=== PATIENT | female | born 1950 | race Caucasian/White ===

== ENCOUNTER 2016-08-26 04:17 | Inpatient (IN) | payer OTHER ==
[~2016-08-26] VITALS: Ht 160 cm; Wt 78.0 kg
[~2016-08-26 04:17] MED LIST: ANASTROZOLE1 M1 PO; ASPIRIN EC81 M1 PO; HYDROCHLOROTHIA25 M1 PO; IRBESARTAN75 M1 PO; NEXIUM40 M1 PO
[2016-08-26] MEDS ORDERED: ZITHROMAX250 M2 PO (11:19)
[2016-08-26] MEDS ORDERED: CORICIDIN HBP1 EACH PO (11:20)
--- NOTE | 2016-08-26 15:14 | Admission Core Measures ---
Admission Meds I reviewed the following Meds: Current Medications Sig/Loraine Start time Last Medication Dose Stop Time Status Admin Ropivacaine 500 ML ONCE ONE 08/26 1315 AC (NAROPIN) 08/28 0654 ON-Q Ball 1 BAG Vancomycin HCl 1,000 MG ONCE 08/26 0000 NR Sodium Chloride 250 ML 08/26 7029 (Normal Saline 0.9%) Acute Coronary Syndrome Inclusion Criteria ACS Diagnosis No Inpatient Core Measures LDL Reminder: If No, please order W/I first 24hr of stay Congestive Heart Failure Inclusion Criteria CHF Diagnosis No Cerebrovascular accident Inclusion Criteria CVA/TIA Diagnosis No Inpatient Core Measures Bedside Swallow Eval Reminder: If BSE failed, place ST order Antithrombotic Reminder: Order Antithrombotic Medication by end of day 2 Antithrombotic Reminder: Document Reason Antithrombotic Not ordered by end of day 2 AFIB/Flutter Reminder: If Present, add to problem list AFIB/Flutter Reminder: Order Anticoag Medication for pts with AFIB/Flutter Atherosclerosis Reminder: If Present, add to problem list LDL Reminder: If No, please order W/I first 24hr of stay PT Order Reminder: If No, please order Venous thromboembolism Inpatient Core Measures VTE Risk Factors: Age > 40, Surgery VTE Prophylaxis Ordered Inpt Mech & Pharm No Mech VTE prophylaxis d/t No contraindications No VTE Pharm Prophylaxis d/t No contraindications Inclusion Criteria - Per Current guidelines, there needs to be overlap - treatment for the first 5 days of Warfarin therapy. - Parenteral Anticoagulation (IV or SC) needs to be - given along with Warfarin therapy. VTE Diagnosis No VTE Type NONE VTE Confirmed by (Test) NONE Problem List As ranked by this Provider includes Assessment & Plan 1. Unilateral primary osteoarthritis, right knee HOME MEDS Home Med List Acetaminophen/Chlorpheniramine (Coricidin Hbp Cold & Flu Tab) 325 MG-2 MG TABLET 1 TAB PO DAILY COUGH (Reported) Anastrozole 1 MG TABLET 1 TAB PO DAILY CANCER (Reported) Aspirin (Ecotrin*) 81 MG TABLET.DR 1 TAB PO DAILY HEART/BLOOD (Reported) Azithromycin (Zithromax) 250 MG TABLET 1 TAB PO DAILY COUGH (Reported) Esomeprazole (Nexium) 40 MG CAPSULE.DR 1 CAP PO DAILY GERD (Reported) Hydrochlorothiazide 25 MG TABLET 1 TAB PO DAILY BP (Reported) Irbesartan 75 MG TABLET 1 TAB PO DAILY BP (Reported)
[2016-08-26] MEDS ORDERED: DILAUDID2 M1 PO (16:09)
[2016-08-26] MEDS ORDERED: MIRALAX17 G1 PO (16:10)
[2016-08-26] MEDS ORDERED: COLACE100 M1 PO (16:10)
[2016-08-26] MEDS ORDERED: COUMADIN2.5 M1 PO (16:11)
[2016-08-26] MEDS ORDERED: ASPIRIN EC81 M1 PO (16:11)
--- NOTE | 2016-08-26 16:15 | Patient Discharge Instructions ---
Discharge Instructions General Discharge Information You were seen/treated for: Right knee pain You had these procedures: Right total knee replacement, by cruciate retaining Watch for these problems: Fevers greater than 101.5. Persistent vomiting for more than 8 hours. Shortness of breath or chest pain. Inability to bear weight whatsoever on your new knee replacement. Excessive draining from the wound that soaks your bandage. Increasing wound redness, or excessive swelling of the leg that was operated on that is not responding to ice, elevation, compression, or rest. Do not soak the wound: Yes No bath, but you may shower: Yes Other wound care: Your dressing is a waterproof silicon based dressing that will stay on for 7 days after your surgery. It is a sterile dressing that is infused with silver which helps to fight bacteria. Your home care nurse or physical therapist will remove it on postop day 7. You may shower as soon as you get home. Remove the Cristian wrap, but keep your dressing in place and let the water run over it. Again, it is a waterproof dressing so it should remain adherent to year skin despite getting wet in the shower. Dry off with a clean towel once done showering. Once the original dressing is removed, it can be replaced with a dry dressing as needed. Spots of blood on your original bandage are quite normal, but if it appears saturated your nurse may change it sooner than 7 days and you should call the office if this happens beyond 48 hours after the surgery. Your incision is closed with absorbable stitches which are hidden deep within the skin. The top layer of quinten will be removed on postoperative day 14, most likely by your nurse or physical therapist. Your incision should be kept covered with a clean, dry bandage for 10-14 days. Do NOT use any creams, lotions, or ointments on your incision until you are told you can do so by Dr. Gomez's office. You may use an Cristian wrap as needed for compression and swelling. Special Instructions: You'll be taking a blood thinning medication called Coumadin. Another name for this medication is warfarin. The dose of this medication is subject to change daily. It is based on blood work called INR. You will have your INR checked 2 times per week. Please await specific instructions from your surgeon's office regarding how much Coumadin you are to take daily prior to taking it. Diet Continue normal diet: Yes Recommended Diet: Regular Additional DIET Information: You may resume your normal diet whenever you choose. Drink plenty of fluids. Your pain medication may make you nauseous. This is a normal side effect of many pain medications. Activity Full Activity/No Limits: No Activity Self Limited: Yes Pounds, do NOT lift more than: 10 Additional ACTIVITY Info: On the day of surgery, or even the next day, you may feel lightheaded when you stand up. This is normal. Be sure to take a few minutes to steady yourself when you first sit up or stand. If you become lightheaded, simply lay down until the feeling passes. You may bear as much weight on your new knee replacement as your comfort allows. Use a rolling walker or crutches for the first 3 weeks postop for stability. You do not have any restrictions with your replaced knee. It is important to take short walks around her house, even if you are having discomfort. This will stretch out your muscles and actually make you feel better. Prolonged periods of inactivity will cause your thigh muscles to tighten up. Activity such as walking to the bathroom, going to the refrigerator, or even walking to the mailbox are actually good therapy! When you are not walking, be sure to keep your legs elevated to prevent excessive swelling. Acute Coronary Syndrome Inclusion Criteria At DC or during hospital stay patient has or had the following: ACS DIAGNOSIS No Discharge Core Measures Meds if any: Prescribed or Continued at Discharge Meds if any: NOT Prescribed or Continued at Discharge Congestive Heart Failure Inclusion Criteria At DC or during hospital stay patient has or had the following: CHF DIAGNOSIS No Discharge Core Measures Meds if any: Prescribed or Continued at Discharge Meds if any: NOT Prescribed or Continued at Discharge Cerebrovascular accident Inclusion Criteria At DC or during hospital stay patient has or had the following: CVA/TIA Diagnosis No Discharge Core Measures Meds if any: Prescribed or Continued at Discharge Meds if any: NOT Prescribed or Continued at Discharge Venous thromboembolism Inclusion Criteria VTE Diagnosis No VTE Type NONE VTE Confirmed by (Test) NONE Discharge Core Measures - Per Current guidelines, there needs to be overlap - treatment for the first 5 days of Warfarin therapy. - If discharged on Warfarin prior to 5 days of - overlap therapy, the patient will need to be - assessed for post discharge needs including - *Post discharge parental anticoagulation - *Warfarin and/or parental anticoagulation education - *Follow up date to check INR post discharge At least 5 days overlap therapy as Inpatient No Meds if any: Prescribed or Continued at Discharge Note: Overlap Therapy is Warfarin and Anticoagulant Meds if any: NOT Prescribed or Continued at Discharge
--- NOTE | 2016-08-26 16:18 | Surgical Discharge Summary ---
Visit Information Visit Dates Admission Date: 08/26/16 Discharge Date: 08/29/16 History of Present Illness Chief Complaint: Right knee pain Medical History Isolation History: Standard Surgical History Pertinent Surgical History: non-contributory Review of Systems: See H&P Hospital Course Course Attending Physician: NILAY SHIELDS MD Primary Care Physician: UNKNOWN Hospital Course: Patient was admitted to the hospital on 08/26/2016 for an elective right total knee replacement, by cruciate retaining. She tolerated the procedure well. She was transferred to a general surgical floor. Her diet was advanced and tolerated. Her vital signs were stable and within normal limits. She voided spontaneously. Her pain was well controlled. She was evaluated and treated by physical therapy. She was deemed appropriate for discharge. Allergies: Coded Allergies: Sulfa (Sulfonamide Antibiotics) (08/20/16) ciprofloxacin (From CIPRO) (08/20/16) lisinopril (08/25/16) PER PRE-OP ORDER SHEET FROM 08/25/16 - Disposition Summary Disposition Principal Diagnosis: Right knee unilateral primary osteoarthritis Additional Diagnosis: None Discharge Disposition: home health services Discharge Instructions General Discharge Information Code Status: Full Code Patient's Diet: Regular, advance as tolerated You may resume your normal diet whenever you choose. Drink plenty of fluids. Your pain medication may make you nauseous. This is a normal side effect of many pain medications. Patient's Activity: On the day of surgery, or even the next day, you may feel lightheaded when you stand up. This is normal. Be sure to take a few minutes to steady yourself when you first sit up or stand. If you become lightheaded, simply lay down until the feeling passes. You may bear as much weight on your new knee replacement as your comfort allows. Use a rolling walker or crutches for the first 3 weeks postop for stability. You do not have any restrictions with your replaced knee. It is important to take short walks around her house, even if you are having discomfort. This will stretch out your muscles and actually make you feel better. Prolonged periods of inactivity will cause your thigh muscles to tighten up. Activity such as walking to the bathroom, going to the refrigerator, or even walking to the mailbox are actually good therapy! When you are not walking, be sure to keep your legs elevated to prevent excessive swelling. Follow-Up Instructions/Appts: Follow-up will be in 2 weeks after discharge from the hospital or otherwise instructed. Call the office for fevers greater than 101.5, persistent vomiting for more than 8 hours, shortness of breath or chest pain, inability to bear weight whatsoever on your new knee replacement, excessive drainage from the wound that soaks your bandage, increased wound redness or excessive swelling of the leg that was operated on that is not responding to ice, elevation, compression, or rest. Medications at Discharge Discharge Medications: Stop taking the following medications: Aspirin (Ecotrin*) 81 MG TABLET. ORAL DAILY Azithromycin (Zithromax) 250 MG TABLET ORAL DAILY Continue taking these medications: Anastrozole (Anastrozole) 1 MG TABLET 1 Tablet ORAL DAILY Comments: DOCUMENTED PER CMR DURING PRE-SX INTERVIEW Esomeprazole (Nexium) 40 MG CAPSULE. 1 Capsule ORAL DAILY Comments: DOCUMENTED PER CMR DURING PRE-SX INTERVIEW Hydrochlorothiazide (Hydrochlorothiazide) 25 MG TABLET 1 Tablet ORAL DAILY Comments: DOCUMENTED PER CMR DURING PRE-SX INTERVIEW Irbesartan (Irbesartan) 75 MG TABLET 1 Tablet ORAL DAILY Comments: DOCUMENTED PER CMR DURING PRE-SX INTERVIEW Acetaminophen/Chlorpheniramine (Coricidin Hbp Cold & Flu Tab) 325 MG-2 MG TABLET 1 Tablet ORAL DAILY Start taking the following new medications: Hydromorphone HCl (Dilaudid) 2 MG TABLET 1-2 Tablet ORAL Q3-4H as needed for PAIN Qty = 40 No Refills Docusate Sodium (Colace) 100 MG CAPSULE 1 Capsule ORAL TWICE DAILY Qty = 14 No Refills Instructions: DISCONTINUE USE IF YOU DEVELOP LOOSE STOOL OR DIARHHEA Polyethylene Glycol 3350 (Miralax) 17 GRAM POWD.PACK 1 Packet ORAL DAILY Qty = 7 No Refills Instructions: dissolve in water, DISCONTINUE USE IF YOU DEVELOP LOOSE STOOL OR DIARRHEA Aspirin (Ecotrin*) 81 MG TABLET. 1 Tablet ORAL TWICE DAILY Qty = 30 No Refills Instructions: DISCONTINUE USE WHEN INR IS GREATER THAN 1.8 Warfarin Sodium (Coumadin) 2.5 MG TABLET 1-3 Tablet ORAL DAILY Qty = 30 No Refills Instructions: PLEASE AWAIT SPECIFIC INSTRUCTIONS REGARDING DAILY DOSE PRIOR TO TAKING
--- NOTE | 2016-08-26 16:24 | Operative Report ---
Operative/Inv Procedure Report Surgery Date: 08/26/16 Name of Procedure: Right bicruciate retaining total knee arthroplasty Pre-Operative Diagnosis: Right knee degenerative joint disease Post-Operative Diagnosis: Same Estimated Blood Loss: 150cc Surgeon/Bed Worker: CORNELIUS MENDOZA,NILAY Gallegos PA-C Anesthesia: moderate sedation, block Operative/Procedure Note Note: Patient presented the office with complaints of right knee pain and demonstrated significant end-stage degenerative changes of the right knee. As a young patient with an intact ACL and PCL verified by MRI patient was offered bicruciate retaining knee versus standard total knee replacements after discussing risks with the patient patient elected to proceed with the bicruciate retaining knee. Preoperative antibiotics, preoperative timeouts and preoperative spinal anesthesia were performed to any skin incision. Patient was then prepped and draped in standard fashion, the right leg was then exsanguinated and tourniquet inflated to 250 mmHg. Initial incision made over the aspect the right knee dissection carried down to the extensor mechanism that was then incised using a standard medial arthrotomy exposing the distal femur proximal tibia. Leases for a varus knee were performed and using an intramedullary cutting jig the distal femur was cut at 5 of valgus based on preoperative templating. Using the distal femoral cutting guide system and sizing, sizing indicated that a size 4 cruciate retaining femur would be appropriate, a Steinmann Whitesides lines and the epicondylar axis appropriate rotation of the guide was then performed and the guide placed. Finishing cuts in the distal femur were then performed. Attention was then turned to the tibia after assuring excellent full extension of the knee with a specialized extension block being placed. 9 millimeters were cut from the medial distal femur and 6 from the lateral distal femur. Using an extra medullary bicruciate retaining cutting block the medial compartment was then cut appropriately utilizing a 5 slope. Trialing with the size 4 femur and initially a size 3 tibial medial component did demonstrate excellent balance. Tension then turned to the lateral cut the lateral cut was then created and the entire trial was then placed. The size 3 appeared to be a bit too big for the tibial plateau so this is downsized to a size 2 again demonstrating excellent medial and lateral coverage. Final preparation of the proximal tibia for the size 2 XR tibial component was then performed patella was then prepared for a 32 mm oval domed patella. Surfaces were then thoroughly irrigated and dried and on the back table 2 bags of Simplex cement were then mixed. Once this region appropriate viscosity was injected and finger packed into the proximal tibia to assure adequate cement penetration and the size 2XR tibial tray was cemented into place with care to remove any excess cement from around the implants using a [place]. The size 4 right cruciate retaining Oxinium femoral component was then cemented into place and the trial 8mm medial and lateral implant trials were then placed while the 32 mm oval domed patella was cemented into place. Once the cement cured the trials were then removed and final placement of the medial and lateral 8 mm liners were then snapped into position. Patient did demonstrate full extension of the knee and flexion easily to 140 in the operating room. The tourniquet was then deflated at 99 minutes, any excess bleeders were cauterized and a drain was placed out the lateral aspect of the thigh. The Ilsa was then closed over the drain using 0 Vicryl subcutaneous tissues using 2-0 Vicryl and the skin using quinten patient was then dressed with Aquacel and transferred to the PACU in good condition.
--- NOTE | 2016-08-26 17:39 | RADIOLOGY REPORT ---
EXAMINATION: XR KNEE, RIGHT CLINICAL INFORMATION: Postop COMPARISON: None. TECHNIQUE: 2 views FINDINGS: Skin quinten and soft tissue changes consistent with recent right knee arthroplasty. Drainage catheter overlies the suprapatellar bursal region. Generalized spurring. Prosthetic components appear satisfactory alignment. No fracture or deformity. IMPRESSION: Satisfactory appearance status post arthroplasty.
[2016-08-26 19:00] VITALS: BP 160/90
[2016-08-26 21:07] VITALS: BP 125/72
[2016-08-26 23:40] VITALS: BP 112/55
--- NOTE | 2016-08-27 00:42 | PN- Orthopedic ---
Subjective Subjective: post op check: Patient has had itching post operatively, required two doses of benadryl, is feeling better. Feels that pain is well controlled presently. Denies chest pain, shortness of breath and difficulty breathing. Denies nausea and vomitting. Objective Vital Signs and I&Os Vital Signs Date Time Temp Pulse Resp B/P Pulse O2 O2 Flow FiO2 Ox Delivery Rate 08/26 2340 98.7 103 20 112/55 92 Room Air 08/26 2107 98.4 108 20 125/72 92 Room Air 08/26 1950 Room Air 08/26 1900 97.7 92 14 160/90 Room Air Intake & Output 08/27 0800 08/27 0000 08/26 1600 08/26 0800 08/26 0000 08/25 1600 Intake Total Output Total Balance Patient 172 lb Weight Physical Exam: General: Alert and oriented x3, no acute distress Cardiac: s1s2, RRR, 100s bpm Pulmonary: Bilateral lung sounds clear to auscultation Abdomen: Non-tender, non-distended Extremities: Moves all extremties, distal sensations intact. Motor 5/5 in plantar and dorsi flexion bilaterally. Skin warm and well perfused. DP pulses palpable bilaterally. Bilateral calves soft and non-tender. Surgical site: Right knee. Dressing dry and intact. ON Q in place with no evidence of leakage. Hemovac x1 holding suction, sanguionous drainage. Assessment/Plan Assessment/Plan This is a 65 year old woman, POD 0, s/p right total knee replacement, bicruciate retaining. -OOB to void, knee immobilizer while ON Q in place until seen by PT -OOB with pt tomrorow, wbat, use rolling walker or crutches while ambulating -Diet as tolerated -Current pain regimen -GI ppx with prilosec -Continue home meds -DVT ppx with coumadin and 81 asa, dc asa when inr >1.8 -Target INR 1.8-2.3 -Bowel regimen: Colace and miralax -Disp planning: home in 2-3 days -Consider dc drain tomorrow -Will d/w Dr. Gomez Core Measures/Miscellaneous Venous Thromboembolism VTE Risk Factors: Age > 40, Surgery VTE Contraindications: No Contraindications VTE Prophylaxis Ordered Inpt: Mech & Pharm VTE Diagnosis: No VTE Type: NONE VTE Confirmed by (Test): NONE Beta Lynda Is Beta Lynda a Home Med? No Antibiotics Is Patient on Antibiotics? Yes If Yes: prophylaxis
--- NOTE | 2016-08-27 04:01 | NUR ---
LATE ENTRY FOR 08/26/162124 SURGICAL PA S.A. HERE TO SEE PT-NOTIFIED OF PT C/O GENERALIZED ITCHING. NO RASH NOTED TO SKIN. SEE ORDERS. ALSO NOTIFIED SURGICAL PA OF HEART RATE 108.
--- NOTE | 2016-08-27 04:06 | NUR ---
LATE ENTRY FOR 12AM REPORTED TO SURGICAL PA S.A. HEART RATE 103.
--- NOTE | 2016-08-27 04:07 | NUR ---
LATE ENTRY FOR 0230AM SPOKE WITH ANESTHESIA TO INFORM OF PT C/O GENERALIZED ITCHING. NO RASH NOTED. PER ORDERS IMFORMED ANESTHESIA THAT PT HAS ALREADY RECEIVED TWO DOSES POSTOP. [address] MAZARIEGOS HERE TO SEE THE PT. 0241 NARCAN IV X1 GIVEN BY ANESTHESIA-SEE EMAR.
[2016-08-27 04:28] VITALS: BP 112/67
--- NOTE | 2016-08-27 07:12 | PN- Orthopedic ---
Subjective Subjective: The patient is seen this morning postoperatively day #1. She complains of some mild incisional soreness but is otherwise comfortable. She has no other complaints at the current time and reports that her itching is much improved. She denies any chest pain or difficulty breathing. Objective Vital Signs and I&Os Vital Signs Date Time Temp Pulse Resp B/P Pulse O2 O2 Flow FiO2 Ox Delivery Rate 08/27 0428 97.9 85 18 112/67 92 Room Air 08/26 2340 98.7 103 20 112/55 92 Room Air 08/26 2107 98.4 108 20 125/72 92 Room Air 08/26 1950 Room Air 08/26 1900 97.7 92 14 160/90 Room Air Intake & Output 08/27 0808/27 0000 08/26 1600 08/26 0808/26 0000 08/25 1600 Intake Total 840 540 Output Total 400 350 Balance 440 190 Intake, IV 600 300 Intake, Oral 240 240 Number 0 Bowel Movements Output, 100 Drainage Output, Urine 300 350 Patient 172 lb Weight Physical Exam: Gen.: Alert and obvious distress Skin: Warm and dry Extremities: Bilateral lower extremities are warm without calf tenderness or significant edema. Gross motor and sensory are intact. Right lower extremity surgical dressing is clean, dry, and intact without signs of infection. There is a Hemovac holding suction with serosanguineous drainage in the canister and there is an On-Q pain pump in place as well. Assessment/Plan Assessment/Plan Assessment: 65-year-old female status post right total knee arthroplasty postoperative day #1. The patient is progressing as expected and her pain is under adequate control. Plan: Hep-Lock IV fluids and DC Hemovac Out of bed with physical therapy patient is weightbearing as tolerated Follow-up morning laboratory studies and re-dose Coumadin for an INR between 2 and 3 Continue current pain regiment GI and DVT prophylaxis Core Measures/Miscellaneous Venous Thromboembolism VTE Risk Factors: Age > 40, Surgery VTE Contraindications: No Contraindications VTE Prophylaxis Ordered Inpt: Mech & Pharm VTE Diagnosis: No VTE Type: NONE VTE Confirmed by (Test): NONE Beta Lynda Is Beta Lynda a Home Med? No Antibiotics Is Patient on Antibiotics? No
[2016-08-27 08:03] VITALS: BP 122/81
[2016-08-27 08:09] LABS: ABSOLUTE BASOPHIL COUNT 0 /CUMM (0.0-0.2); ABSOLUTE EOSINOPHIL COUNT 0 /CUMM (0.0-0.7); ABSOLUTE GRANULOCYTE CT 7.7 /CUMM (1.4-6.5); ABSOLUTE LYMPH COUNT 0.6 /CUMM (1.2-3.4); ABSOLUTE MONOCYTE COUNT 0.6 /CUMM (0.10-0.60); BASOPHIL % 0.1 % (0.0-2.0); EOSINOPHIL % 0 % (0-5); HEMATOCRIT 33.3 % (37-47); MEAN CORPUSCULAR HGB 31.8 PG (27.0-31.0); MEAN CORPUSCULAR HGB CONC 34.6 G/DL (33.0-37.0); MEAN CORPUSCULAR VOLUME 91.8 FL (81.0-99.0); MEAN PLATELET VOLUME 8.1 FL (7.4-10.4); RBC DISTRIBUTION WIDTH 12.3 % (11.5-14.5); RED BLOOD CELL CT 3.63 /CUMM (4.20-5.40); WHITE BLOOD CELL COUNT 8.9 /CUMM (4.8-10.8)
[2016-08-27 08:23] LABS: PT 11.5 SEC (9.4-12.5)
[2016-08-27 08:48] LABS: PLATELET COUNT 195 /CUMM (130-400)
[2016-08-27 08:49] LABS: GRANULOCYTE % 86.8 % (42.2-75.2)
[2016-08-27 12:08] VITALS: BP 122/80
[2016-08-27 16:13] VITALS: BP 140/68
--- NOTE | 2016-08-27 19:32 | NUR ---
PATIENT C/O 10/10 PAIN TO RLE, DILAUDID 4MG PO GIVEN AT 1800, FOR A PAIN RATING OF 7/10. STATED IT JUST CAME ON QUICKLY. OFFERED MORPHINE FOR BREAKTHROUGH PAIN, PT DECLINED AT THIS TIME. GAVE 30 MG TORADOL. CONTINUE TO MONITOR.
[2016-08-27 20:00] VITALS: BP 164/80
[2016-08-27 20:37] VITALS: BP 132/68
[2016-08-28 00:03] VITALS: BP 128/68
[2016-08-28 03:45] VITALS: BP 160/94
[2016-08-28 06:30] VITALS: BP 138/74
--- NOTE | 2016-08-28 07:14 | PN- Orthopedic ---
See Addendum Subjective Subjective: The patient was Seen this morning postoperatively day #2. She is complaining of significant violetta-incisional pain this morning for which the pain medicine was not adequately controlling. Objective Vital Signs and I&Os Vital Signs Date Time Temp Pulse Resp B/P Pulse O2 O2 Flow FiO2 Ox Delivery Rate 08/28 0630 138/74 08/28 0345 98.3 94 20 160/94 98 Room Air 08/28 0003 98.4 87 18 128/68 93 Room Air 08/27 2037 98.9 96 20 132/68 94 Room Air 08/27 2000 99.0 97 20 164/80 94 Room Air 08/27 1613 97.6 86 20 140/68 96 Room Air 08/27 1208 98.0 74 20 122/80 96 Room Air 08/27 1100 Room Air 08/27 0803 98.6 75 20 122/81 92 Room Air Intake & Output 08/28 0800 08/28 0000 08/27 1600 08/27 0800 08/27 0000 08/26 1600 Intake Total 731 510 5331 840 540 Output Total 500 1050 900 400 500 Balance -260 -450 100 440 40 Intake, IV 50 600 300 Intake, Oral 240 600 950 240 240 Number 0 0 Bowel Movements Output, 100 150 Drainage Output, Urine 500 1050 900 300 350 Patient 172 lb Weight Physical Exam: Gen.: Alert and obvious distress Skin: Warm and dry Extremities: Bilateral lower extremities are warm without calf tenderness or significant edema. Gross motor and sensory were intact. Surgical dressing was taken down and the incision was clean, dry, and intact without signs of infection. There was expected violetta- incisional edema and ecchymosis Assessment/Plan Assessment/Plan Assessment: 65-year-old female status post left total knee arthroplasty postoperative day #2. The patient is progressing as expected and her pain is somewhat under control. Plan: Will reassess current pain regiment DC On-Q pain pump Out of bed ambulate with physical therapy patient is weightbearing as tolerated GI and DVT prophylaxis Follow-up morning laboratory studies and dose Coumadin for an INR between 2 and 3 Possible discharge later today if pain is more adequately managed. Core Measures/Miscellaneous Venous Thromboembolism VTE Risk Factors: Age > 40, Surgery VTE Contraindications: No Contraindications VTE Prophylaxis Ordered Inpt: Mech & Pharm VTE Diagnosis: No VTE Type: NONE VTE Confirmed by (Test): NONE Beta Lynda Is Beta Lynda a Home Med? No Antibiotics Is Patient on Antibiotics? No
[2016-08-28 07:38] LABS: ABSOLUTE BASOPHIL COUNT 0 /CUMM (0.0-0.2); ABSOLUTE EOSINOPHIL COUNT 0.1 /CUMM (0.0-0.7); ABSOLUTE GRANULOCYTE CT 4.1 /CUMM (1.4-6.5); ABSOLUTE LYMPH COUNT 1.6 /CUMM (1.2-3.4); ABSOLUTE MONOCYTE COUNT 0.8 /CUMM (0.10-0.60); BASOPHIL % 0.2 % (0.0-2.0); EOSINOPHIL % 1.1 % (0-5); GRANULOCYTE % 62.4 % (42.2-75.2); HEMATOCRIT 31.7 % (37-47); MEAN CORPUSCULAR HGB 31.6 PG (27.0-31.0); MEAN CORPUSCULAR HGB CONC 34.1 G/DL (33.0-37.0); MEAN CORPUSCULAR VOLUME 92.7 FL (81.0-99.0); PLATELET COUNT 172 /CUMM (130-400); RBC DISTRIBUTION WIDTH 12.8 % (11.5-14.5); RED BLOOD CELL CT 3.42 /CUMM (4.20-5.40); WHITE BLOOD CELL COUNT 6.6 /CUMM (4.8-10.8)
[2016-08-28 07:49] VITALS: BP 130/82
[2016-08-28 08:23] LABS: PT 16.5 SEC (9.4-12.5)
--- NOTE | 2016-08-28 11:41 | NUR ---
NURSING NOTE: PT MEDICATED WITH PO DILAUDID AT 0926AM, MORPHINE 2MG IV AT 1035AM; PT STILL C/O 01/24 PAIN. REQUESTING "SOMETHING ELSE" C ASTON CACERES CALLED AND MADE AWARE,. PT IN RECLINER, ICE PACK IN USE, REPOSITIIONED. TORADOL IV X1 GIVEN AT THIS TIME, CONT TO MONITOR.
[2016-08-28 15:39] VITALS: BP 138/80
[2016-08-28 23:51] VITALS: BP 146/72
--- NOTE | 2016-08-29 07:42 | PN- Orthopedic ---
Subjective Subjective: pod#3 s/p right tka continued pain control issue has been oob with pt, doing well denies cp, sob, no n+v with diet Objective Vital Signs and I&Os Vital Signs Date Time Temp Pulse Resp B/P Pulse O2 O2 Flow FiO2 Ox Delivery Rate 08/28 2351 98.1 92 19 146/72 94 Room Air 08/28 1539 98.5 97 20 138/80 94 08/28 0749 98.6 91 20 130/82 92 Room Air Intake & Output 08/29 0800 08/29 0000 08/28 1600 08/28 0800 08/28 0000 08/27 1600 Intake Total 240 360 950 313 903 6726 Output Total 900 1100 536 340 3763 900 Balance -660 -740 300 -260 -450 100 Intake, IV 50 50 Intake, Oral 240 360 900 240 600 950 Number 1 0 Bowel Movements Output, Urine 900 1100 924 043 9436 900 Physical Exam: cv: rrr lungs: clear abd: soft, +bs ext: maryuri bandage removed no calf tenderness bilat aquacel in place distal cms intact Assessment/Plan Assessment/Plan ortho stable plan celebrex 200mg x1 now cont oob with pt ice to right knee bilat cookie hose plan for home d/c today Core Measures/Miscellaneous Venous Thromboembolism VTE Risk Factors: Age > 40, Surgery VTE Contraindications: No Contraindications VTE Prophylaxis Ordered Inpt: Mech & Pharm VTE Diagnosis: No VTE Type: NONE VTE Confirmed by (Test): NONE Beta Lynda Is Beta Lynda a Home Med? No Antibiotics Is Patient on Antibiotics? No
[2016-08-29 08:08] LABS: ABSOLUTE BASOPHIL COUNT 0 /CUMM (0.0-0.2); ABSOLUTE EOSINOPHIL COUNT 0.1 /CUMM (0.0-0.7); ABSOLUTE GRANULOCYTE CT 4.8 /CUMM (1.4-6.5); ABSOLUTE LYMPH COUNT 1.7 /CUMM (1.2-3.4); ABSOLUTE MONOCYTE COUNT 0.8 /CUMM (0.10-0.60); BASOPHIL % 0.3 % (0.0-2.0); GRANULOCYTE % 64.4 % (42.2-75.2); HEMATOCRIT 33.8 % (37-47); MEAN CORPUSCULAR HGB 31.8 PG (27.0-31.0); MEAN CORPUSCULAR VOLUME 93.3 FL (81.0-99.0); MEAN PLATELET VOLUME 8.1 FL (7.4-10.4); PLATELET COUNT 207 /CUMM (130-400); RBC DISTRIBUTION WIDTH 12.7 % (11.5-14.5); RED BLOOD CELL CT 3.62 /CUMM (4.20-5.40); WHITE BLOOD CELL COUNT 7.5 /CUMM (4.8-10.8)
[2016-08-29 08:18] LABS: PT 18.2 SEC (9.4-12.5)
[2016-08-29 09:05] VITALS: BP 151/96
== END 2016-08-29 12:43 | disposition home health service (06) | DRG 470 ==
LOC: 2NB 04:17 → SDA 04:17 → ENPENDDIS 04:17 → SDA 07:00 → 2NB 19:18
PROVIDERS: Nurse Practitioner; Physician Assistant Surgical; ADMIT Orthopaedic Surgery
PROC: 0SRC0J9 Replacement of Right Knee Joint with Synthetic Substitute, Cemented, Open Approach (ICD-10-PCS; principal; 2016-08-26)
DX: M17.11 Unilateral primary osteoarthritis, right knee (principal); I10 Essential (primary) hypertension; K21.9 Gastro-esophageal reflux disease without esophagitis; Z85.3 Personal history of malignant neoplasm of breast
CPT/HCPCS: 2NBSP; 36415; 73560-RT; 82436; 88305; 97110-GO; 97116-GO; 97161-GP; 97530-GO; C1713; C9290; EXP; J0131; J1200; J1885; J2310; J2765; J2795; J3370; J3490; J7040; J7060